=== PATIENT | male | born 1980 | race Two or more races ===

== ENCOUNTER 2016-11-06 22:52 | Emergency (ER) | payer MEDICAID ==
[2016-11-07] MEDS ORDERED: ONDANSETRON 4 MG/2ML 2 ML VIAL ONE (02:31)
[2016-11-07] MEDS ORDERED: LACTATED RINGERS 1,000 ML ONE (02:31)
[2016-11-07 02:54] LABS: ABSOLUTE NEUTROPHIL COUNT 2.1 K/mm3 (1.8-7.7); BASO % 0.3 % (0.2-1.0); HEMATOCRIT 43.3 % (32.0-52.0); HEMOGLOBIN 14.7 gm/l (14.0-18.0); IMM NEUT% 0.3 % (0-1); LYMPH # 1.1 (1.0-4.8); LYMPH % 28.7 % (15-45); MEAN CELL VOLUME 88.9 fl (80.0-94.0); MEAN CORPUSCULAR HEMOGLOBIN 30.2 pg (27.0-31.0); MEAN CORPUSCULAR HGB CONC 33.9 g/dl (33.0-37.0); MEAN PLATELET VOLUME 9.3 fl (7.4-10.4); MONO # 0.6 (0.0-0.8); MONO % 15.5 % (4-12); NEUT % 55.2 % (43-75); PLATELET COUNT 199 K/mm3 (130-400); RED CELL DISTRIBUTION WIDTH 12.2 % (11.5-14.5)
[2016-11-07 03:06] LABS: ALB/GLOB RATIO 1.4 (>1.0); ALBUMIN 4.2 gm/dL (3.5-5.7); CALCIUM 9.5 mg/dL (8.6-10.3)
--- NOTE | 2016-11-07 13:37 | RAD ---
CHEST - 2 VIEWS COMPARISON: None. HISTORY: Fever, headache, chest pain with cough for 3 days. FINDINGS: Views: Frontal and lateral chest Lungs: Normal Heart and vessels: Normal Trachea and bronchi: Normal Mediastinum and roxane: Normal Costophrenic sulci: Normal Chest wall and bones: Normal. Upper abdomen: Normal. IMPRESSION: Negative 2 view chest.
== END 2016-11-07 04:34 | disposition home or self-care (01) ==
LOC: ED 22:52
DX: J06.9 Acute upper respiratory infection, unspecified (principal); R11.0 Nausea
CPT/HCPCS: 83605; 85025; 80053; 71020; 87804; 99284 ×2; 96374; J2405; J7120